=== PATIENT | male | born 1955 | race Two or more races ===

== ENCOUNTER → 2024-07-29 | Emergency (ER) | payer OTHER ==
[~2024-07-29] VITALS: Ht 180.3 cm; Wt 79.8 kg
[~2024-07-29] MED LIST: AMLODIPINE-OLM1 EAC2; DICLOFENAC SODI75 MG PO; FIASP 100100 UNIT/1; GLIPIZIDE ER10 MG; KETOROLAC TROMETHAMINE 60 MG VIAL IM ONE; LIPITOR20 MG; NORFLEX100MG PO; ORPHENADRINE CITRATE 30 MG/ML AMPUL IM ONE
== END | disposition home or self-care (01) ==
LOC: ER 18:46
DX: M77.8 Other enthesopathies, not elsewhere classified (principal); E11.9 Type 2 diabetes mellitus without complications; Z79.4 Long term (current) use of insulin; E78.00 Pure hypercholesterolemia, unspecified; I10 Essential (primary) hypertension
CPT/HCPCS: 96372; 99282; J1885; J2360

== ENCOUNTER → 2024-10-12 | Emergency (ER) | payer OTHER ==
[~2024-10-12] MED LIST changes: -KETOROLAC TROMETHAMINE 60 MG VIAL IM ONE; -ORPHENADRINE CITRATE 30 MG/ML AMPUL IM ONE
== END | disposition left against medical advice (07) ==
LOC: ER 22:02
DX: Z53.21 Procedure and treatment not carried out due to patient leaving prior to being seen by health care provider (principal)

== ENCOUNTER 2025-04-17 13:47 | Inpatient (IN) | payer OTHER ==
[~2025-04-17] VITALS: Ht 180.3 cm; Wt 79.8 kg
[~2025-04-17 13:47] MED LIST changes: +AMLODIPINE-OLM1 EACH PO; +GLIPIZIDE10 MG PO; +LYRICA150 MG PO
[2025-04-17] MEDS ORDERED: CLONAZEPAM0.5 MG PO (13:56)
[2025-04-17] MEDS ORDERED: LOSARTAN POTASS50 MG PO (13:57)
[2025-04-17] MEDS ORDERED: HALOPERIDO100 MG/12 (13:57)
--- NOTE | 2025-04-17 13:58 | NUR ---
SE RECIBE PACIENTE ALERTA Y ORIENTADO X3 REFIERE VENIR EN LA PANTORILLA DE LA BASILIO SILVA
[2025-04-17] MEDS ORDERED: ORPHENADRINE CITRATE 30 MG/ML AMPUL IM STA (14:36)
[2025-04-17] MEDS ORDERED: KETOROLAC TROMETHAMINE 60 MG VIAL IM STA (14:36)
[2025-04-17] MEDS ORDERED: DEXAMETHASONE SODIUM PHOSPHATE 4 MG/ML VIAL IM STA (14:37)
--- NOTE | 2025-04-17 15:13 | NUR ---
SE ORIENTA SOBRE TX. SE LINETTE MUESTRAS DE LAB BAJO MEDIDAS ASEPTICAS. SE ADMINISTRA MEDICAMENTO POR ORDEN MEDICA
[2025-04-17 16:07] LABS: BASO % 0.2 % (0.1-1.2); EOS # 0.24 (0.04-0.54); EOS % 1.3 % (0.7-7.0); LYMPH # 0.87 (1.18-3.74); LYMPH % 4.8 % (19.3-53.1); MEAN PLATELET VOLUME 10.70 fl (9.4-12.4); MONO # 1.56 (0.24-0.82); MONO % 8.6 % (4.7-12.5); NEUT # 15.46 (1.56-6.13); NEUT % 84.8 % (34.0-71.1); RED CELL DISTRIBUTION WIDTH 14.6 % (11.6-14.4)
[2025-04-17 16:33] LABS: ALT/SGPT 39.0 U/L (12-78); AST/SGOT 15.0 U/L (15-37); BILIRUBIN TOTAL 0.57 mg/dL (0.3-1.2); BUN CREA RATIO 19.0 (7.0-25.0); CREATININE SERUM 1.39 mg/dL (0.70-1.30); GFR 50.97; GLOBULINA 3.2 G/DL (2.4-3.5); GLUCOSE FASTING 199.0 mg/dL (65-100); OSMOLALITY SERUM 296.0 MOSM/KG (275-295)
[2025-04-17 18:11] LABS: URINE APPEARANCE Clear; URINE BILIRRUBIN Moderate (NEGATIVE); URINE BLOOD Negative; URINE COLOR Dark Yellow; URINE KETONE Trace (NEGATIVE); URINE LEUKOCYTE Small; URINE NITRATE Positive; URINE PROTEIN Trace (NEGATIVE); URINE UROBILINOGEN 1.0 E.U./dl
[2025-04-17 18:16] LABS: URINE BACTERIA 231.3 uL (0.0-1933); URINE EPITHELIAL CELLS 74.8 uL (0.0-38.8); URINE RBC 9.1 uL (0.0-20.8); URINE WBC 9.4 uL (0.0-23.2)
[2025-04-17 18:24] LABS: URINE CAST > 21.83 uL (0.0-1.40); URINE GLUCOSE 100 MG/DL (NEGATIVE)
[2025-04-17 18:27] LABS: URINE MUCUS MODERATE
--- NOTE | 2025-04-17 20:23 | NUR ---
SE NOTIFICA ESTUDIO DE DOPPLER PENDIENTE. PTE SE UBICA EN OTF.
[2025-04-17] MEDS ORDERED: ENOXAPARIN SODIUM 80 MG/0.8 ML SYRINGE SUBCUTANEO SCH (22:42)
--- NOTE | 2025-04-18 00:06 | NUR ---
SE RECIBE A PACIENTE ALERTA Y ORIENTADO X3 EN CAMA A NIVEL DE PISO JUNTO CON BARRANDAS ELEVADAS. PENDIENTE A DOPPLER.
[2025-04-18] MEDS ORDERED: TRAMADOL HCL 50 MG TABLET PO STA (03:11)
--- NOTE | 2025-04-18 03:49 | NUR ---
SE PHYLLIS DXT 520MG/DL, SE NOTIFICA A DR. OVIEDO.
[2025-04-18] MEDS ORDERED: 0.9 % SODIUM CHLORIDE 1,000 ML IV STA (04:02)
[2025-04-18] MEDS ORDERED: INSULIN REGULAR, HUMAN 1,000 UNIT/10 ML UNITS IV STA (04:03)
[2025-04-18] MEDS ORDERED: INSULIN REGULAR, HUMAN 1,000 UNIT/10 ML UNITS SUBCUTANEO STA (04:04)
[2025-04-18] MEDS ORDERED: LORazepam 2 MG/ML VIAL IM STA (04:23)
--- NOTE | 2025-04-18 04:32 | NUR ---
SE CANALIZA Y SE ADMINSITRAN MEDICAMENTOS SHAKA ORDEN MEDICA.
[2025-04-18] MEDS ORDERED: CEFTRIAXONE SODIUM 2,000 MG VIAL IV ONE (08:30)
[2025-04-18] MEDS ORDERED: KETOROLAC TROMETHAMINE 60 MG VIAL IM ONE (08:30)
[2025-04-18 08:50] LABS: BASO % 0.1 % (0.1-1.2); EOS # 0.00 (0.04-0.54); EOS % 0.0 % (0.7-7.0); LYMPH # 0.65 (1.18-3.74); LYMPH % 3.0 % (19.3-53.1); MEAN PLATELET VOLUME 9.80 fl (9.4-12.4); MONO # 1.82 (0.24-0.82); MONO % 8.3 % (4.7-12.5); NEUT # 19.31 (1.56-6.13); NEUT % 88.1 % (34.0-71.1); RED CELL DISTRIBUTION WIDTH 14.2 % (11.6-14.4)
[2025-04-18] MEDS ORDERED: 0.9 % SODIUM CHLORIDE 1,000 ML IV SCH (18:45)
[2025-04-18] MEDS ORDERED: ACETAMINOPHEN 325 MG TABLET PO PRN (18:45)
[2025-04-18] MEDS ORDERED: DEXTROSE 50 % IN WATER 0.5 G/ML VIAL IV PRN (18:45)
[2025-04-18] MEDS ORDERED: KETOROLAC TROMETHAMINE 30 MG VIAL IU PRN (18:45)
[2025-04-18] MEDS ORDERED: INSULIN LISPRO 1,000 UNIT/10 ML UNITS SUBCUTANEO PRN (18:45)
[2025-04-18] MEDS ORDERED: CYCLOBENZAPRINE HCL 5 MG TABLET PO PRN (19:00)
[2025-04-18 21:09] VITALS: BP 130/50; O2SAT 95
[2025-04-18] MEDS ORDERED: QUETIAPINE FUMARATE 100 MG TABLET PO SCH (21:30)
[2025-04-18 21:34] LABS: COVID-19 AG POSITIVE (NEGATIVE)
[2025-04-19 02:16] VITALS: BP 143/71; O2SAT 96
[2025-04-19] MEDS ORDERED: ACETAMINOPHEN 500 MG GEL..CAP PO PRN (06:45)
[2025-04-19] MEDS ORDERED: CEFTRIAXONE SODIUM 2,000 MG in 0.9 % SODIUM CHLORIDE 100 ML IV SCH (09:00)
[2025-04-19] MEDS ORDERED: ENOXAPARIN SODIUM 40 MG/0.4 ML SYRINGE SUBCUTANEO SCH (09:00)
[2025-04-19] MEDS ORDERED: LOSARTAN POTASSIUM 50 MG TABLET PO SCH (09:00)
[2025-04-19 10:19] VITALS: BP 142/61; O2SAT 98
[2025-04-19 14:17] LABS: BASO % 0.3 % (0.1-1.2); EOS # 0.21 (0.04-0.54); EOS % 1.4 % (0.7-7.0); LYMPH # 1.56 (1.18-3.74); LYMPH % 10.4 % (19.3-53.1); MEAN PLATELET VOLUME 12.40 fl (9.4-12.4); MONO # 1.20 (0.24-0.82); MONO % 8.0 % (4.7-12.5); NEUT # 11.89 (1.56-6.13); NEUT % 79.4 % (34.0-71.1); RED CELL DISTRIBUTION WIDTH 14.1 % (11.6-14.4)
[2025-04-19] MEDS ORDERED: KETOROLAC TROMETHAMINE 30 MG VIAL IV SCH ×2 (17:00→18:00)
[2025-04-19 18:42] VITALS: BP 165/68
[2025-04-19] MEDS ORDERED: LIDOCAINE 5% 1 PATCH ADH. TOP SCH (21:15)
[2025-04-20 01:24] VITALS: BP 165/66; O2SAT 97
[2025-04-20 06:48] LABS: BASO % 0.3 % (0.1-1.2); EOS # 0.18 (0.04-0.54); EOS % 1.6 % (0.7-7.0); LYMPH # 1.81 (1.18-3.74); LYMPH % 16.0 % (19.3-53.1); MEAN PLATELET VOLUME 10.00 fl (9.4-12.4); MONO # 1.13 (0.24-0.82); MONO % 10.0 % (4.7-12.5); NEUT # 8.13 (1.56-6.13); NEUT % 71.7 % (34.0-71.1); RED CELL DISTRIBUTION WIDTH 13.7 % (11.6-14.4)
[2025-04-20 07:19] LABS: ALT/SGPT 36.0 U/L (12-78); AST/SGOT 16.0 U/L (15-37); BILIRUBIN TOTAL 0.33 mg/dL (0.3-1.2); BUN CREA RATIO 25.0 (7.0-25.0); CREATININE SERUM 0.73 mg/dL (0.70-1.30); GFR 107.17; GLOBULINA 3.1 G/DL (2.4-3.5); OSMOLALITY SERUM 290.0 MOSM/KG (275-295)
[2025-04-20 07:20] LABS: GLUCOSE FASTING 217.0 mg/dL (65-100)
[2025-04-20 09:18] VITALS: BP 149/69; O2SAT 96
[2025-04-20] MEDS ORDERED: LACTOBACILLUS ACIDOPHILUS 1 CAP CAP PO SCH (17:00)
[2025-04-20 19:01] VITALS: BP 160/77; O2SAT 100
[2025-04-20] MEDS ORDERED: LIDOCAINE 5% 1 PATCH ADH. TOP SCH (21:00)
[2025-04-21 00:27] VITALS: BP 167/80; O2SAT 98
[2025-04-21 10:21] VITALS: BP 161/72; O2SAT 96
[2025-04-21 18:58] VITALS: BP 160/75; O2SAT 98
[2025-04-22 01:00] VITALS: BP 145/67
[2025-04-22 09:35] VITALS: BP 160/76; O2SAT 97
== END 2025-04-22 13:46 | disposition home or self-care (01) | DRG 689 ==
LOC: MEDJ → ER 13:47 → MEDJ 04-18 19:12
PROVIDERS: General Practice; Preventive Medicine Public Health & General Preventive Medicine; ADMIT Internal Medicine; ATTEND Internal Medicine
PROC: B54DZZZ Ultrasonography of Bilateral Lower Extremity Veins (ICD-10-PCS; 2025-04-17)
PROC: 8E0ZXY6 Isolation (ICD-10-PCS; principal; 2025-04-18)
PROC: BW21ZZZ Computerized Tomography (CT Scan) of Abdomen and Pelvis (ICD-10-PCS; 2025-04-18)
PROC: B44HZZZ Ultrasonography of Bilateral Lower Extremity Arteries (ICD-10-PCS; 2025-04-20)
PROC: BR39YZZ Magnetic Resonance Imaging (MRI) of Lumbar Spine using Other Contrast (ICD-10-PCS; 2025-04-20)
DX: N39.0 Urinary tract infection, site not specified (principal); U07.1 COVID-19; I10 Essential (primary) hypertension; Z79.4 Long term (current) use of insulin; M54.41 Lumbago with sciatica, right side; E78.5 Hyperlipidemia, unspecified; E11.40 Type 2 diabetes mellitus with diabetic neuropathy, unspecified
CPT/HCPCS: 72149